=== PATIENT | male | born 1985 | race African-American/Black ===

== ENCOUNTER 2021-08-06 01:32 | Emergency (ER) | payer MEDICAID ==
[~2021-08-06] VITALS: Ht 188 cm; Wt 127.0 kg
[2021-08-06] MEDS ORDERED: ONDANSETRON HCL 4MG/2ML INJ IV STA (03:01)
[2021-08-06] MEDS ORDERED: SODIUM CHLORIDE 0.9% 1,000 ML IV ONE (03:15)
[2021-08-06 04:25] LABS: BASOPHILS % 0.8 % (0.0-2.0); EOSINOPHILS % 4.2 % (0.0-5.0); HEMATOCRIT. 39.4 % (42.0-52.0); HEMOGLOBIN. 12.6 g/dL (14.0-18.0); MEAN CORPUSCULAR VOLUME 71.8 fL (80.0-94.0); MEAN PLATELET VOLUME 8.7 fl (7.4-10.4); PLATELET 233 x1000/uL (130-400); RED BLOOD CELL COUNT 5.49 mill/uL (4.7-6.1)
[2021-08-06 04:37] LABS: CHLORIDE 107 mEq/L (98-107)
[2021-08-06] MEDS ORDERED: BISM262T15 MT (06:51)
[2021-08-06] MEDS ORDERED: ALBU6.7H9 INH (06:56)
[2021-08-06] MEDS ORDERED: IPRATROPIUM/ALBUTEROL 0.5-3(2.5)MG/3ML NEB HHN ONE (07:00)
[2021-08-06] MEDS ORDERED: ALBUTEROL (0.083%) 2.5MG/3ML NEB HHN STA (10:55)
[2021-08-06] MEDS ORDERED: IPRATROPIUM BROMIDE (0.02%) 0.5MG/2.5ML NEB HHN STA (10:55)
[2021-08-06] MEDS ORDERED: PREDNISONE 20MG TABLET PO STA (11:33)
[2021-08-06] MEDS ORDERED: MAGNESIUM 2 G PREMIX 50 ML IV STA (11:33)
[2021-08-06] MEDS ORDERED: PRED5TAB MT (12:41)
[2021-08-06] MEDS ORDERED: ALBU2.5V13 NEB (12:41)
[2021-08-06 13:16] VITALS: BP 139/80
== END 2021-08-06 13:18 | disposition home or self-care (01) ==
LOC: ER 02:23
DX: K52.9 Noninfective gastroenteritis and colitis, unspecified (principal); J45.909 Unspecified asthma, uncomplicated; Z79.899 Other long term (current) drug therapy
CPT/HCPCS: 36415; 71045; 74176; 80053; 83690; 85025; 94640; 96361; 96365; 96375; 99285; J2405; J3475; J7030; J7512; Z7610